=== PATIENT | female | born 2000 | race African-American/Black ===

== ENCOUNTER 2019-06-07 21:14 | Emergency (ER) | payer MEDICAID ==
[~2019-06-07] VITALS: Ht 160 cm; Wt 46.8 kg
[2019-06-07 21:21] VITALS: Ht 160 cm; Wt 46.8 kg
[2019-06-07] MEDS ORDERED: CATAPRES0.1 MG (21:22)
[2019-06-07] MEDS ORDERED: VYVANSE70 MG PO (21:22)
[2019-06-07] MEDS ORDERED: SEROQUEL50 MG (21:22)
[2019-06-07] MEDS ORDERED: HYDROCODON-ACE1 EA10 PO (22:32)
[2019-06-07 23:25] VITALS: BP 119/70
== END 2019-06-07 23:26 | disposition home or self-care (01) ==
LOC: D.ER 21:14
DX: S62.302A Unspecified fracture of third metacarpal bone, right hand, initial encounter for closed fracture (principal); V89.2XXA Person injured in unspecified motor-vehicle accident, traffic, initial encounter; W22.10XA Striking against or struck by unspecified automobile airbag, initial encounter; Y93.9 Activity, unspecified; Y92.9 Unspecified place or not applicable

== ENCOUNTER 2019-06-09 16:13 | Emergency (ER) | payer MEDICAID ==
[~2019-06-09 16:13] MED LIST: CATAPRES0.1 MG; HYDROCODON-ACE1 EA10 PO; SEROQUEL50 MG; VYVANSE70 MG PO
[2019-06-09 16:33] VITALS: Ht 160 cm
[2019-06-09] MEDS ORDERED: ULTRAM50 MG PO (18:24)
[2019-06-09 18:48] VITALS: BP 98/53
== END 2019-06-09 18:48 | disposition home or self-care (01) ==
LOC: D.ER 16:13
DX: S62.393D Other fracture of third metacarpal bone, left hand, subsequent encounter for fracture with routine healing (principal)

== ENCOUNTER → 2020-10-13 10:00 | Outpatient (CLI) | payer OTHER ==
[~2020-10-13 10:00] MED LIST changes: +ULTRAM50 MG PO
== END | disposition home or self-care (01) ==
LOC: D.MRI 10-06 13:00
PROVIDERS: ATTEND Clinical Nurse Specialist Family Health
DX: M25.832 Other specified joint disorders, left wrist (principal)